=== PATIENT | male | born 1935 | race Caucasian/White ===

== ENCOUNTER 2020-06-02 16:00 | Emergency (ER) | payer MEDICARE, OTHER ==
[~2020-06-02] VITALS: Ht 190.5 cm; Wt 95.0 kg
[2020-06-02 17:57] LABS: HCT (SEDRATE) 30.6 % (39.2-51.8)
[2020-06-02 17:58] LABS: BASOPHILS # (AUTO) 0.02 x10^3/uL (0-0.1); BASOPHILS % (AUTO) 0 % (0-1); EOSINOPHILS # (AUTO) 0.41 x10^3/uL (0-0.4); EOSINOPHILS % (AUTO) 6 % (1-7); LYMPHOCYTES # (AUTO) 0.55 x10^3/uL (1-3.4); LYMPHOCYTES % (AUTO) 8 % (22-44); MD NO; MEAN CORPUSCULAR HEMOGLOBIN 29.8 pg (27.5-34.5); MEAN CORPUSCULAR HGB CONC 32.3 g/dL (33.2-36.2); MEAN PLATELET VOLUME 7.6 fL (7.4-10.4); MONOCYTES # (AUTO) 0.71 x10^3/uL (0.2-0.8); MONOCYTES % (AUTO) 11 % (2-9); NEUTROPHILS # (AUTO) 4.88 x10^3/uL (1.8-6.8); NEUTROPHILS % (AUTO) 74 % (42-75); PLATELET COUNT 174 x10^3/uL (130-400); RED BLOOD COUNT 3.35 x10^6/uL (4.38-5.82); RED CELL DISTRIBUTION WIDTH 15.6 % (9.4-14.8)
[2020-06-02] MEDS ORDERED: AMPICILLIN/SULBACTAM 3 GM in SODIUM CHLORIDE 0.9% 100 ML IV ONE (18:00)
[2020-06-02 18:05] LABS: ALBUMIN 1.9 g/dL (3.4-5.0); ANION GAP 5 mmol/L (5-15); CALCIUM 8.3 mg/dL (8.5-10.1); CHLORIDE 107 mmol/L (98-107); CREATININE 0.41 mg/dL (0.7-1.3)
[2020-06-02] MEDS ORDERED: SODIUM CHLORIDE FLUSH 10ML SYR IVF ONE (18:30)
--- NOTE | 2020-06-02 18:58 | NUR ---
Pt report from [facility] negrete. This rn to assume care of pt. Pt tbdc. Abx initiated per emar. No cultures recommended by ERP at this time. TP aware of need for tx back to [facility].
--- NOTE | 2020-06-02 19:08 | NUR ---
Daytime RN called report to [facility] after bedside report to this rn. [facility] aware of pt coming back. Awaiting [facility] tx.
--- NOTE | 2020-06-02 20:33 | NUR ---
Pt talking on phone in room to family. NADN. No immediate needs from pt. VSS. Awaiting remsa back to [facility].
--- NOTE | 2020-06-02 20:52 | NUR ---
THROUGHPUT RN [facility] AT 2130 TO PICK PT UP FOR TRANSFER
== END 2020-06-02 18:43 | disposition home or self-care (01) ==
LOC: ED 18:37
DX: L03.116 Cellulitis of left lower limb (principal); L03.115 Cellulitis of right lower limb
CPT/HCPCS: 36415; 73630; 80048; 82040; 85025; 85651; 96365; 99284; J0295